=== PATIENT | female | born 1935 | race Caucasian/White ===

== ENCOUNTER 2017-11-28 14:10 | Outpatient (CLI) | payer MEDICARE, OTHER | END 2017-11-28 14:11 | disposition home or self-care (01) | LOC: BICMAMMO 14:10 | PROVIDERS: ATTEND Internal Medicine | DX: Z12.31 Encounter for screening mammogram for malignant neoplasm of breast (principal); Z13.820 Encounter for screening for osteoporosis; M85.859 Other specified disorders of bone density and structure, unspecified thigh | CPT/HCPCS: 77063; 77067; 77080 ==

== ENCOUNTER 2018-02-28 15:07 | Emergency (ER) | payer MEDICARE, OTHER ==
--- NOTE | 2018-02-28 16:03 | CT ---
CT HEAD NONCONTRAST DATE: 02/28/18 HISTORY: Headache. COMPARISON: 03/28/13. FINDINGS: There is no evidence of acute intracranial hemorrhage or infarct. Cortical atrophy and chronic ischem ic small vessel disease are again demonstrated. There is no mass effect or shift of midline structure s. Visualized paranasal sinuses remain well aerated. IMPRESSION: Chronic-type findings are stable. No acute intracranial abnormalities are demonstrated on noncontrast CT head. POS: [facility]
[2018-02-28 16:43] LABS: #Basophils 0.1 thou/uL (0.0-0.2); #Eosinphils 0.3 thou/uL (0.0-0.7); #Lymphocytes 2.1 thou/uL (1.20-3.40); #Monocytes 0.7 thou/uL (0.11-0.59); %Basophils 1.2 % (0.0-1.0); %Eosinophils 4.1 % (0.0-10.0); %Lymphocytes 29.8 % (21.0-51.0); %Monocytes 9.1 % (0.0-10.0); %Neutrophils 55.8 % (42.0-75.0); Hemoglobin 13.8 g/dL (12.0-16.0); Mean Corpuscular HGB CONC 32.8 g/dL (32.0-36.0); Mean Corpuscular Hemoglobin 28.8 pg (27.0-31.0); Mean Corpuscular Volume 87.8 fL (78.0-98.0); Mean Platelet Volume 8.6 fL (7.4-10.4); Platelet Count 208 thou/uL (130-400); RBC Distribution Width 12.7 % (11.5-14.5); Red Blood Cell (RBC) Count 4.81 mill/uL (4.20-5.40); White Blood Cell (WBC) Count 7.2 thou/uL (4.8-10.8)
[2018-02-28 17:16] LABS: ALT (SGPT) 15 U/L (8-55); AST (SGOT) 27 U/L (5-34); Albumin 4.4 g/dL (3.4-4.8); Alkaline Phosphatase 80 U/L (40-150); Anion Gap 14 mmol/L (10-20); BUN (Urea Nitrogen) 12 mg/dL (9.8-20.1); Bilirubin, Total 1.1 mg/dL (0.2-1.2); Calc. Creatinine Clearance 0 mL/min (70-130); Calcium 9.8 mg/dL (7.8-10.44); Carbon Dioxide 25 mmol/L (23-31); Chloride 105 mmol/L (98-107); Estimated GFR-MDRD 72; Glucose 91 mg/dL (83-110); Potassium 3.8 mmol/L (3.5-5.1); Protein, Total 7.4 g/dL (6.0-8.3); Sodium 140 mmol/L (136-145)
== END 2018-02-28 18:50 | disposition home or self-care (01) ==
LOC: ERS 15:07
DX: R51 Headache (principal); I10 Essential (primary) hypertension; E11.9 Type 2 diabetes mellitus without complications; E03.9 Hypothyroidism, unspecified; K21.9 Gastro-esophageal reflux disease without esophagitis; E78.5 Hyperlipidemia, unspecified; G43.909 Migraine, unspecified, not intractable, without status migrainosus; F32.9 Major depressive disorder, single episode, unspecified; Z79.899 Other long term (current) drug therapy; Z79.82 Long term (current) use of aspirin; Z79.84 Long term (current) use of oral hypoglycemic drugs
CPT/HCPCS: 36415; 70450; 80053; 85025

== ENCOUNTER 2019-03-18 13:35 | Outpatient (CLI) | payer MEDICARE, OTHER ==
--- NOTE | 2019-03-18 14:09 | MMO ---
Bilateral MAMMO Bilat Screen [facility]. CLINICAL HISTORY: Patient is 84 years old and is seen for screening. The patient has no family history of breast cancer. The patient has no personal history of cancer. VIEWS: The views performed were: bilateral craniocaudal with tomosynthesis and bilateral mediolateral oblique with tomosynthesis. FILMS COMPARED: The present examination has been compared to prior imaging studies performed at [facility] on 09/11/2012, 12/16/2013, 03/09/2015 and 11/28/2017. This study has been interpreted with the assistance of computer-aided detection. MAMMOGRAM FINDINGS: The breasts are almost entirely fat. There are stable benign appearing calcifications seen in both breasts. There are no suspicious masses, suspicious calcifications, or new areas of architectural distortion. IMPRESSION: THERE IS NO MAMMOGRAPHIC EVIDENCE OF MALIGNANCY. A ROUTINE FOLLOW-UP MAMMOGRAM IN 1 YEAR IS RECOMMENDED. THE RESULTS OF THIS EXAM WERE SENT TO THE PATIENT. ACR BI-RADS Category 2 - Benign finding MAMMOGRAPHY NOTE: 1. A negative mammogram report should not delay a biopsy if a dominant of clinically suspicious mass is present. 2. Approximately 10% to 15% of breast cancers are not detected by mammography. 3. Adenosis and dense breasts may obscure an underlying neoplasm. Reported by: ZEESHAN ARGUELLO MD Electonically Signed: [id number]
== END 2019-03-18 13:36 | disposition home or self-care (01) ==
LOC: BICMAMMO 13:35
PROVIDERS: ATTEND Internal Medicine
DX: Z12.31 Encounter for screening mammogram for malignant neoplasm of breast (principal)
CPT/HCPCS: 77063; 77067

== ENCOUNTER 2020-02-23 03:47 | Emergency (ER) | payer MEDICARE, OTHER ==
[2020-02-23] MEDS ORDERED: Acetaminophen 500 MG TAB ONE (04:15)
[2020-02-23 04:26] LABS: #Basophils 0.1 thou/uL (0.0-0.2); #Eosinphils 0.2 thou/uL (0.0-0.7); #Lymphocytes 1.6 thou/uL (1.20-3.40); #Monocytes 0.6 thou/uL (0.11-0.59); %Basophils 0.7 % (0.0-1.0); %Eosinophils 1.6 % (0.0-10.0); %Lymphocytes 15.1 % (21.0-51.0); %Monocytes 5.7 % (0.0-10.0); %Neutrophils 76.9 % (42.0-75.0); Hemoglobin 13.9 g/dL (12.0-16.0); Mean Corpuscular HGB CONC 32.5 g/dL (32.0-36.0); Mean Corpuscular Hemoglobin 29.4 pg (27.0-31.0); Mean Corpuscular Volume 90.6 fL (78.0-98.0); Mean Platelet Volume 8.6 fL (7.4-10.4); Platelet Count 172 thou/uL (130-400); RBC Distribution Width 12.1 % (11.5-14.5); Red Blood Cell (RBC) Count 4.72 mill/uL (4.20-5.40); White Blood Cell (WBC) Count 10.4 thou/uL (4.8-10.8)
[2020-02-23] MEDS ORDERED: Fentanyl 100 MCG/2 ML VIAL ONE (04:44)
[2020-02-23 04:47] LABS: ALT (SGPT) 15 U/L (8-55); AST (SGOT) 19 U/L (5-34); Alkaline Phosphatase 65 U/L (40-110); Anion Gap 18 mmol/L (10-20); BUN (Urea Nitrogen) 16 mg/dL (9.8-20.1); Bilirubin, Total 0.5 mg/dL (0.2-1.2); Calc. Creatinine Clearance 0 mL/min (70-130); Calcium 8.5 mg/dL (7.8-10.44); Carbon Dioxide 24 mmol/L (23-31); Chloride 106 mmol/L (98-107); Globulin 2.6 g/dL (2.4-3.5); Glucose 149 mg/dL (83-110); Protein, Total 6.6 g/dL (6.0-8.3); Sodium 144 mmol/L (136-145)
[2020-02-23 06:10] LABS: Bacteria/HPF 4+ HPF (None Seen); Bilirubin Negative (Negative); Blood, Urine 1+ (Negative); Clarity Turbid (Clear); Glucose, Urine (Dipstick) Normal (Negative); Ketone, Urine Negative (Negative); Leukocyte 250 Leu/uL (Negative); Nitrite 2+ (Negative); Protein, Urine (Dipstick) 20 mg/dL (Neg-Trace); RBC/HPF 0-3 HPF (0-3); Specific Gravity, Urine 1.011 (1.002-1.036); Squamous Epithelial 0-3 HPF (0-3); Urobilinogen Normal mg/dL (Less than 2)
--- NOTE | 2020-02-23 07:40 | CT ---
PRELIMINARY REPORT/[facility]/EMERGENCY AFTER HOURS PROCEDURE EXAM: CT Head and Cervical Spine Without IV contrast. CLINICAL HISTORY: FALL TECHNIQUE: Axial computed tomography images were acquired of the head and the cervical spine without intravenous contrast. Sagittal and coronal reformatted images were obtained of the cervical spine. COMPARISON: None provided. FINDINGS: BRAIN: There is cerebral atrophy. There is no intracranial hemorrhage. Periventricular hypodensities are pre sent secondary to small vessel ischemic disease. VENTRICLES No hydrocephalus. ORBITS The orbits are unremarkable. SINUSES AND MASTOIDS The paranasal sinuses and mastoid air cells are clear. SOFT TISSUES No significant facial or scalp soft tissue swelling evident. No radiopaque foreign body is seen. BONES No acute osseous pathology evident. No acute fracture is evident on images of the head or cervical spine. DISKS/DEGENERATIVE CHANGES Cystic degenerative changes of the dens is present. Facet hypertrophy is present. MISCELLANEOUS Carotid arteries are heavily calcified. IMPRESSION: No acute intracranial abnormality. Degenerative changes cervical spine. ELECTRONICALLY SIGNED BY: Alexa Akhtar MD Feb 23, 2020 4:57:16 AM EDUCATIONAL SPECIALIST This report is intended for review by the ordering physician only, in accordance of law. If you recei ve this report in error, please call [facility] at [phone]. FINAL REPORT Final interpretation Head CT without contrast: 02/23/2020 COMPARISON: None. HISTORY: Fall, trauma, pain. FINDINGS: I agree with the preliminary report. The visualized paranasal sinuses and mastoid air cells are well-aerated. No displaced calvarial fract ure is noted. There is no intracranial hemorrhage, midline shift, or mass effect. There is periventricular hypodensity suggesting small vessel disease. IMPRESSION: No acute findings. Transcribed Date/Time: 02/23/2020 8:06 AM
--- NOTE | 2020-02-23 07:43 | CT ---
PRELIMINARY REPORT/[facility]/EMERGENCY AFTER HOURS PROCEDURE EXAM: CT Head and Cervical Spine Without IV contrast. CLINICAL HISTORY: FALL TECHNIQUE: Axial computed tomography images were acquired of the head and the cervical spine without intravenous contrast. Sagittal and coronal reformatted images were obtained of the cervical spine. COMPARISON: None provided. FINDINGS: BRAIN: There is cerebral atrophy. There is no intracranial hemorrhage. Periventricular hypodensities are pre sent secondary to small vessel ischemic disease. VENTRICLES No hydrocephalus. ORBITS The orbits are unremarkable. SINUSES AND MASTOIDS The paranasal sinuses and mastoid air cells are clear. SOFT TISSUES No significant facial or scalp soft tissue swelling evident. No radiopaque foreign body is seen. BONES No acute osseous pathology evident. No acute fracture is evident on images of the head or cervical spine. DISKS/DEGENERATIVE CHANGES Cystic degenerative changes of the dens is present. Facet hypertrophy is present. MISCELLANEOUS Carotid arteries are heavily calcified. IMPRESSION: No acute intracranial abnormality. Degenerative changes cervical spine. ELECTRONICALLY SIGNED BY: Alexa Akhtar MD Feb 23, 2020 4:57:16 AM FLASHER ADJUSTER This report is intended for review by the ordering physician only, in accordance of law. If you recei ve this report in error, please call [facility] at [phone]. FINAL REPORT Final interpretation CT cervical spine: 02/23/2020 COMPARISON: 03/28/2019 HISTORY: Injury, trauma, pain. FINDINGS: I agree with the preliminary report. There is prominent atherosclerotic calcification in region of distal CCA and proximal ICA bilaterally , right greater than left. Imaged lung apices unremarkable. The C1 ring is intact. There is prominent degenerative change at the left aspect of the C1-2 articula tion. There is prominent multilevel upper and mid cervical spine facet hypertrophic change on the left. There is no widening of the atlantoaxial interspace. The craniocervical junction and the cervic othoracic junction demonstrate no acute findings. There is no anterolisthesis or retrolisthesis seen and there is no prevertebral soft tissue swelling. No acute fracture or dislocation is seen within the cervical spine. IMPRESSION: 1. Multilevel degenerative change within the cervical spine, especially on the left within the upper and mid cervical region. No fracture or dislocation. 2. Prominent carotid atherosclerotic calcification, right greater than left. Transcribed Date/Time: 02/23/2020 8:09 AM
--- NOTE | 2020-02-23 07:54 | RAD ---
2 views left humerus: 02/23/2020 COMPARISON: None HISTORY: Injury, trauma, pain FINDINGS: A comminuted fracture is noted involving the distal left humerus for which dedicated left e lbow series is advised. There are degenerative changes at the left acromioclavicular joint. IMPRESSION: Comminuted distal left humerus fracture. Dedicated left elbow series advised.
--- NOTE | 2020-02-23 07:55 | RAD ---
4 views left elbow: 02/23/2020 COMPARISON: None HISTORY: Injury, trauma, pain FINDINGS: There is a comminuted displaced intra-articular fracture of the distal left humerus. Distal fracture fragment is posteriorly displaced by approximately 8 mm. There is an elbow joint effusion. No radha dislocation. IMPRESSION: Comminuted impacted displaced intra-articular fracture of the distal left humerus. Orthop edic consultation advised.
--- NOTE | 2020-02-23 07:59 | RAD ---
Portable frontal chest radiograph: 02/23/2020 COMPARISON: 02/11/2019 HISTORY: Fall, trauma, pain FINDINGS: Supine imaging is provided, limiting assessment for pneumothorax and pleural fluid. Stable interstitial prominence and vascular calcification of the aortic arch. No focal consolidation or alveolar edema. IMPRESSION: No acute findings.
== END 2020-02-23 05:33 | disposition home or self-care (01) ==
LOC: ERS 03:47
DX: S42.412A Displaced simple supracondylar fracture without intercondylar fracture of left humerus, initial encounter for closed fracture (principal); W19.XXXA Unspecified fall, initial encounter; Y92.89 Other specified places as the place of occurrence of the external cause
CPT/HCPCS: 24530; 36415; 51701; 70450; 71045; 72125; 80053; 81003; 81015; 84484; 85025; 87077; 87086; 87186; 93005; 96372; J3010

== ENCOUNTER 2020-03-04 08:43 | Outpatient (CLI) | payer MEDICARE, OTHER ==
[2020-03-04 15:06] LABS: #Basophils 0.1 10x3/uL (0.0-0.2); #Eosinphils 0.3 10x3/uL (0.0-0.5); #Monocytes 0.8 10x3/uL (0.0-1.1); #Neutrophils 6.4 10x3/uL (1.5-8.4); %Basophils 1.3 % (0.0-2.0); %Eosinophils 2.8 % (0.0-6.0); %Lymphocytes 17.7 % (18.0-47.0); %Monocytes 8.8 % (0.0-10.0); %Neutrophils 69.2 % (40.0-75.0); Hemoglobin 13.9 g/dL (12.0-16.0); Mean Corpuscular HGB CONC 31.4 G/DL (32.0-36.0); Mean Corpuscular Hemoglobin 28.6 PG (27.0-33.0); Mean Corpuscular Volume 90.9 fl (80.0-100.0); Mean Platelet Volume 10.3 fl (7.4-10.4); Platelet Count 289 10x3/uL (130-400); Red Blood Cell (RBC) Count 4.86 10x6/uL (3.90-5.20); White Blood Cell (WBC) Count 9.2 10x3/uL (4.5-11.0)
[2020-03-04 15:14] LABS: Anion Gap 15 mmol/L (10-20); BUN (Urea Nitrogen) 15 mg/dL (9.8-20.1); Calc. Creatinine Clearance 0 mL/min (70-130); Calcium 9.1 mg/dL (7.8-10.44); Carbon Dioxide 23 mmol/L (23-31); Chloride 101 mmol/L (98-107); Glucose 112 mg/dL (83-110); Sodium 135 mmol/L (136-145)
[2020-03-04 15:21] LABS: Prothrombin Time 10.9 sec (9.5-12.1)
[2020-03-05 02:11] LABS: SARS-CoV-2 MS2 Positive; SARS-CoV-2 N Gene Negative; SARS-CoV-2 S Gene Negative; SARS-CoV-2 by NAA Not Detected (NotDetected); SARS-CoV-2 orf1ab Negative
== END 2020-03-04 08:44 | disposition home or self-care (01) ==
LOC: LABBT 08:43
PROVIDERS: ATTEND Orthopaedic Surgery
DX: Z01.818 Encounter for other preprocedural examination (principal); S42.402A Unspecified fracture of lower end of left humerus, initial encounter for closed fracture; Z20.828 Contact with and (suspected) exposure to other viral communicable diseases
CPT/HCPCS: 80048; 85025; 85610; 93005; U0003; 87635; 93010

== ENCOUNTER 2020-03-04 14:15 | Inpatient (IN) | payer MEDICARE, OTHER ==
[2020-03-03 13:04] VITALS: BMI 30.5
[2020-03-09] MEDS ORDERED: Tranexamic Acid 1,000 MG/10 ML VIAL ONE (06:29)
[2020-03-09] MEDS ORDERED: Vancomycin 1.5 GRAM/300 ML BAG ONE (06:30)
[2020-03-09] MEDS ORDERED: Sodium Chloride 0.9% 100 ML ONE (06:30)
[2020-03-09] MEDS ORDERED: Fentanyl 100 MCG/2 ML VIAL ONE ×3 (10:28→14:02)
[2020-03-09] MEDS ORDERED: Methocarbamol 500 MG TAB PO PRN (10:39)
[2020-03-09] MEDS ORDERED: Methocarbamol 1 GM/10 ML VIAL SLOW IVP PRN (10:39)
[2020-03-09] MEDS ORDERED: Ondansetron ODT 4 MG TAB PO PRN (10:39)
[2020-03-09] MEDS ORDERED: HYDROcodone/Acetaminophen 7.5/325 mg Tablet PO PRN (10:39)
[2020-03-09] MEDS ORDERED: traMADol HCl 50 MG TAB PO PRN ×2 (10:39)
[2020-03-09] MEDS ORDERED: Bisacodyl 10 MG SUPP PR PRN (10:39)
[2020-03-09] MEDS ORDERED: Acetaminophen 325 MG TAB PO PRN (10:39)
[2020-03-09] MEDS ORDERED: Ondansetron PF 4 MG/2 ML Vial IVP PRN (10:39)
[2020-03-09] MEDS ORDERED: diphenhydrAMINE 50 MG CAP PO PRN (10:39)
[2020-03-09] MEDS ORDERED: Milk Of Magnesia 30 ML UDCUP PO PRN (10:39)
--- NOTE | 2020-03-09 10:40 | RAD ---
LEFT ELBOW: Three fluoroscopic images are presented from the OR. INDICATION: Left elbow joint replacement. FINDINGS/IMPRESSION: Images obtained in OR during prosthesis placement. These images show placement of a left elbow prosth esis with components in adequate position. POS: [facility]
[2020-03-09] MEDS ORDERED: ePHEDrine 50 MG/ML VIAL ONE (10:59)
[2020-03-09] MEDS ORDERED: Rocuronium Bromide 10 MG/ML (10ML VIAL) ONE (10:59)
[2020-03-09] MEDS ORDERED: PROPOFOL 200 MG/20 ML VIAL ONE (10:59)
[2020-03-09] MEDS ORDERED: Dexamethasone 20 MG/5 ML VIAL ONE (10:59)
[2020-03-09] MEDS ORDERED: Lidocaine 1% PF 5 ML VIAL ONE (10:59)
[2020-03-09] MEDS ORDERED: Ondansetron PF 4 MG/2 ML Vial ONE (10:59)
--- NOTE | 2020-03-09 12:43 | OP ---
DATE OF PROCEDURE: 03/09/2020 PREOPERATIVE DIAGNOSIS: Left distal humerus fracture. POSTOPERATIVE DIAGNOSIS: Left distal radius intra-articular fracture. PROCEDURE PERFORMED: 1. Left total elbow arthroplasty. 2. Ulnar nerve transposition. PHARMACY SCHEDULER: Tomasz Deutsch PA-C ANESTHESIA: The patient received a general intubation and she received a scalene block postprocedure. ESTIMATED BLOOD LOSS: 150 mL. TOURNIQUET TIME: 128 minutes at 750 mmHg. ANTIBIOTICS: Ancef 2 g, vancomycin 1.5. IMPLANTS: Latitude total elbow, humerus, large left 83 mm stem, large left centered spool ulnar, large left 80 mm stem, large ulnar cap. COMPLICATIONS: None. HISTORY OF PRESENT ILLNESS: Ms. Sweet is an 85-year-old female with ground level fall sustaining a left humerus fracture intra-articular split. I do not feel would be conducive for ORIF. She had good overall function with total elbow arthroplasty. I discussed with her daughter the risks and benefits of this procedure include pain, scar, bleeding, infection, damage to vital structures, decreased range of motion and strength, need for further surgeries, loss of life or limb. The patient and family understood risks and benefits of the procedure and elected to proceed. DESCRIPTION OF PROCEDURE: After time-out was performed, the left upper extremity was prepped and draped in sterile fashion. We took the tourniquet up and left for 128 minutes and midline incision down the skin. We felt skin flaps medially and laterally. We dissected out the ulnar nerve, releasing it and placing a vessel loop around to control it. We then did our median and ulnar borders. We exposed the epicondyles coming down the anterior and posterior, actually humerus. We dissected out the triceps. We then distally exposed the lateral epicondyle, exposed both medially and laterally exposing the capitellum and the epicondyle and the remnant of the patient's trochlea. We used a Sizer spool which appeared to be large. Based on this, we exposed our humerus. We started rongeuring, creating and start opening our flexible reamers going up to our broaches to a good sized to fit. We used the proximal end of the olecranon fossa as our basis for our humeral stem and we attempted to get about 10 to 15 degrees internal rotation of the humerus based of this posterior access humerus. Being happy with this, we placed our cutting jig to remove just a little bit of bone to help with our distal and ensured we had appropriate position. Being happy with that, we then moved back to the patient's ulna. We had exposed the ulna medially and laterally. We used our cutting jig, our spool which we pinned in place, felt like the large was the correct size. We then used our barrel filler head and went over the barrel filler head once and completed the second pass. Removing this portion, we then rongeur down the patient's olecranon to help with passage of our reamers. We started with a gita to create a hole followed by a flexible reamer ball-tip down. We passed flexor reamer up to about 10. We broached based on the flat surface of the ulna. I broached our first broach working up to the large broach. We then trialed our stem, reduced our ulna, looked in AP and lateral radiographs fluoroscopically, felt like she had good overall alignment of the implants intra-articularly, alignment with the ulna appropriately as well as the humerus. Being happy with the position of the implants, we then removed all our implants. We washed and cleaned all the surfaces. We created a wedge from the capitellum of bone to place anteriorly under our flange. We then mixed our cement. We paced our cement and passed our ulnar stem impacting into place. We removed the excess cement and ensure that it was seated. We moved back to the patient's humerus. We placed our humerus and removed the excess cement and placed our wedge, allowed it to dry. Once dried, we were able to reduce our ulna. We used our ulnar cap and screwed it into place to tamp down the small flange on top ensured with good range of motion, flexion, extension. I liked this overall alignment and axis. We then took radiographs showing this. We then placed through the center-center axis and passed remnant soft tissue through the epicondyle to sew #2 FiberWire on both sides of the condyles back in the near anatomic position. We then closed the interval. We transposed the nerve anteriorly and fat pad in place closed medially and laterally with #1 and 0 Vicryl. We washed and closed subcu with 2-0, and skin with yogesh. The patient was placed in a splint at 90 degrees. The patient will be seen on Sunday in my clinic at which time, removed her splint, given removable splint so she can start range of motion of her elbow. [place] stand for likely 2 to 3 weeks. Job ID: [id number]
[2020-03-09] MEDS ORDERED: Acetaminophen 500 MG TAB PO PRN (15:06)
[2020-03-09] MEDS ORDERED: Cyanocobalamin 1000 MCG/ML VIAL IM SCH (15:15)
[2020-03-09] MEDS: HYDROcodone/Acetaminophen 7.5/325 mg Tablet PO PRN ×2 (15:25→20:14)
[2020-03-09] MEDS: CEFAZOLIN 2 GM in Premix Bag 1 BAG IVPB SCH ×2 (15:25→23:08)
[2020-03-09] MEDS: Dextrose 5 %-0.45 % NaCl 1,000 ML IV SCH (15:29)
[2020-03-09] MEDS: metFORMIN 500 MG TAB PO SCH (16:42)
[2020-03-09] MEDS ORDERED: Vancomycin 1.5 GRAM/300 ML BAG 1.5 GM in Premix Bag 1 BAG IVPB SCH (19:00)
[2020-03-09] MEDS: Mometasone 100 MCG/PUFF (1 INHALER) INH SCH (19:05)
[2020-03-09] MEDS: Famotidine 20 MG TAB PO SCH (20:13)
[2020-03-09] MEDS: Gabapentin 300 MG CAP PO SCH (20:13)
[2020-03-09] MEDS: Nitrofurantoin Macrocrystal 50 MG CAP PO SCH (20:14)
[2020-03-10] MEDS: Dextrose 5 %-0.45 % NaCl 1,000 ML IV SCH (03:18)
[2020-03-10] MEDS: HYDROcodone/Acetaminophen 7.5/325 mg Tablet PO PRN ×2 (04:03→08:41)
[2020-03-10] MEDS ORDERED: Levothyroxine 150 MCG TAB PO SCH (06:00)
[2020-03-10] MEDS ORDERED: Dextrose 50% Abboject 50 ML SYRINGE SLOW IVP PRN (07:18)
[2020-03-10] MEDS ORDERED: Insulin Regular 300 UNITS/3 ML VIAL SC PRN (07:18)
[2020-03-10] MEDS ORDERED: Dextrose 5% in Water 1,000 ML IV PRN (07:18)
[2020-03-10] MEDS: Mometasone 100 MCG/PUFF (1 INHALER) INH SCH (08:00)
[2020-03-10] MEDS ORDERED: Multivit, Therapeutic 1 TAB PO SCH (09:00)
[2020-03-10] MEDS ORDERED: Loratadine 10 MG TAB PO SCH (09:00)
[2020-03-10] MEDS ORDERED: Aspirin Chewable 81 MG TAB PO SCH (09:00)
[2020-03-10] MEDS ORDERED: Escitalopram Oxalate 20 mg Tablet PO SCH (09:00)
[2020-03-10] MEDS ORDERED: Hydrochlorothiazide 25 MG TAB PO SCH (09:00)
[2020-03-10] MEDS ORDERED: Losartan 25 MG TAB PO SCH (09:00)
[2020-03-10] MEDS ORDERED: Ropivacaine 0.5% HCl/PF (150 MG/30 ML VIAL) ONE (09:16)
[2020-03-10] MEDS ORDERED: Ropivacaine 0.2% HCl/PF (40 MG/20 ML VIAL) ONE (09:16)
[2020-03-10] MEDS: Famotidine 20 MG TAB PO SCH (09:31)
[2020-03-10] MEDS: metFORMIN 500 MG TAB PO SCH ×2 (09:31→17:00)
[2020-03-10] MEDS: Gabapentin 300 MG CAP PO SCH ×2 (09:31→15:07)
[2020-03-10] MEDS: Nitrofurantoin Macrocrystal 50 MG CAP PO SCH (09:32)
[2020-03-10 17:12] VITALS: BP 97/59; TEMP 98.4
== END 2020-03-10 18:00 | disposition home or self-care (01) | DRG 483 ==
LOC: SURG A 03-09 05:36
PROVIDERS: ADMIT Orthopaedic Surgery; ATTEND Orthopaedic Surgery
PROC: 0RRM0JZ Replacement of Left Elbow Joint with Synthetic Substitute, Open Approach (ICD-10-PCS; principal; 2020-03-09)
DX: S42.402A Unspecified fracture of lower end of left humerus, initial encounter for closed fracture (principal); Z20.822 Contact with and (suspected) exposure to COVID-19; W18.30XA Fall on same level, unspecified, initial encounter; I10 Essential (primary) hypertension; E78.5 Hyperlipidemia, unspecified; D64.9 Anemia, unspecified; J30.2 Other seasonal allergic rhinitis; E11.51 Type 2 diabetes mellitus with diabetic peripheral angiopathy without gangrene; E03.9 Hypothyroidism, unspecified; K59.09 Other constipation; F41.9 Anxiety disorder, unspecified; Z79.84 Long term (current) use of oral hypoglycemic drugs; Z79.890 Hormone replacement therapy; Z90.710 Acquired absence of both cervix and uterus; Z79.899 Other long term (current) drug therapy; Z79.82 Long term (current) use of aspirin
CPT/HCPCS: 36416; 76000; C1713; J0690; J1100; J2405; J2704; J3010; J3370; J3490

== ENCOUNTER 2021-10-19 05:46 | Emergency (ER) | payer MEDICARE, OTHER ==
[2021-10-19] MEDS ORDERED: Oxymetazoline HCl 0.05% (30 ML BOT) ONE (05:51)
[2021-10-19] MEDS ORDERED: Ondansetron ODT 4 MG TAB ONE (08:11)
== END 2021-10-19 09:20 | disposition home or self-care (01) ==
LOC: ERS 05:46
DX: R04.0 Epistaxis (principal); S02.2XXD Fracture of nasal bones, subsequent encounter for fracture with routine healing; I10 Essential (primary) hypertension; E11.40 Type 2 diabetes mellitus with diabetic neuropathy, unspecified; Z79.82 Long term (current) use of aspirin; Z79.84 Long term (current) use of oral hypoglycemic drugs; Z79.899 Other long term (current) drug therapy
CPT/HCPCS: 31238 ×2; 70450; 70486; 76377; 99284; G0463; 99214; Q0162

== ENCOUNTER 2022-05-26 11:02 | Inpatient (IN) | payer MEDICARE, OTHER ==
[2022-05-26 11:54] LABS: #Basophils 0.1 thou/uL (0.0-0.2); #Eosinphils 0.1 thou/uL (0.0-0.7); #Lymphocytes 1.5 thou/uL (1.20-3.40); #Monocytes 1.2 thou/uL (0.11-0.59); #Neutrophils 8.4 thou/uL (1.40-6.50); %Basophils 0.5 % (0.0-1.0); %Eosinophils 0.5 % (0.0-10.0); %Lymphocytes 13.6 % (21.0-51.0); %Monocytes 10.8 % (0.0-10.0); %Neutrophils 74.7 % (42.0-75.0); Hemoglobin 12.2 g/dL (12.0-16.0); Mean Corpuscular HGB CONC 32.5 g/dL (32.0-36.0); Mean Corpuscular Hemoglobin 25.9 pg (27.0-31.0); Mean Corpuscular Volume 79.6 fl (78.0-98.0); Mean Platelet Volume 9.4 fL (7.4-10.4); Platelet Count 179 10x3/uL (130-400); RBC Distribution Width 14.5 % (11.5-14.5); Red Blood Cell (RBC) Count 4.73 mill/uL (4.20-5.40); White Blood Cell (WBC) Count 11.2 10x3/uL (4.8-10.8)
[2022-05-26 12:21] LABS: ALT (SGPT) 29 U/L (8-55); AST (SGOT) 86 U/L (5-34); Albumin 4.2 g/dL (3.4-4.8); Alkaline Phosphatase 67 U/L (40-110); Anion Gap 15 mmol/L (10-20); BUN (Urea Nitrogen) 14 mg/dL (9.8-20.1); Bilirubin, Total 1.3 mg/dL (0.2-1.2); CK (CPK) 3874 U/L (29-168); Calc. Creatinine Clearance 0 mL/min (70-130); Calcium 9.9 mg/dL (7.8-10.44); Carbon Dioxide 22 mmol/L (23-31); Chloride 104 mmol/L (98-107); Estimated GFR 66; Globulin 3.1 g/dL (2.4-3.5); Glucose 126 mg/dL (83-110); Potassium 3.9 mmol/L (3.5-5.1); Protein, Total 7.3 g/dL (5.8-8.1); Sodium 137 mmol/L (136-145)
[2022-05-26 13:11] LABS: Acetaminophen Less than 10.0 mcg/mL (10.0-30.0); Alcohol Less than 10 mg/dL (Less than 10); Salicylate Less than 8.0 mg/dL (15.0-30.0)
[2022-05-26] MEDS ORDERED: Ondansetron PF 4 MG/2 ML Vial IVP PRN (14:04)
[2022-05-26] MEDS ORDERED: Ondansetron ODT 4 MG TAB PO PRN (14:04)
[2022-05-26] MEDS ORDERED: HumaLOG 300 UNITS/3 ML VIAL SC PRN ×2 (15:54)
[2022-05-26] MEDS ORDERED: Dextrose 5% in Water 1,000 ML IV PRN (15:54)
[2022-05-26] MEDS ORDERED: Dextrose 50% Abboject 50 ML SYRINGE SLOW IVP PRN (15:54)
[2022-05-26 16:00] VITALS: BMI 28.5
[2022-05-26] MEDS: Sodium Chloride 0.9% 1,000 ML IV SCH (17:28)
[2022-05-26 17:34] LABS: Troponin I Less than 0.010 ng/mL (< 0.028)
[2022-05-26 17:43] LABS: Hemoglobin A1c 6.4 % (4.0-6.0)
[2022-05-26 18:41] LABS: Troponin I 0.015 ng/mL (< 0.028)
[2022-05-27] MEDS: Acetaminophen 325 MG TAB PO PRN ×3 (02:57→14:49)
[2022-05-27] MEDS: Sodium Chloride 0.9% 1,000 ML IV SCH ×2 (02:58→17:58)
[2022-05-27 05:02] LABS: #Basophils 0.1 thou/uL (0.0-0.2); #Eosinphils 0.1 thou/uL (0.0-0.7); #Lymphocytes 2.3 thou/uL (1.20-3.40); #Neutrophils 5.6 thou/uL (1.40-6.50); %Basophils 0.8 % (0.0-1.0); %Eosinophils 1.4 % (0.0-10.0); %Lymphocytes 25.6 % (21.0-51.0); %Monocytes 10.7 % (0.0-10.0); %Neutrophils 61.5 % (42.0-75.0); Hemoglobin 10.5 g/dL (12.0-16.0); Mean Corpuscular Hemoglobin 26.1 pg (27.0-31.0); Mean Corpuscular Volume 79.2 fl (78.0-98.0); Mean Platelet Volume 9.5 fL (7.4-10.4); Platelet Count 147 10x3/uL (130-400); RBC Distribution Width 14.5 % (11.5-14.5); Red Blood Cell (RBC) Count 4.03 mill/uL (4.20-5.40); White Blood Cell (WBC) Count 9.1 10x3/uL (4.8-10.8)
[2022-05-27 05:20] LABS: Anion Gap 12 mmol/L (10-20); BUN (Urea Nitrogen) 15 mg/dL (9.8-20.1); Calc. Creatinine Clearance 71 mL/min (70-130); Calcium 8.7 mg/dL (7.8-10.44); Carbon Dioxide 21 mmol/L (23-31); Chloride 106 mmol/L (98-107); Estimated GFR 77; Glucose 105 mg/dL (83-110); Potassium 3.3 mmol/L (3.5-5.1); Sodium 136 mmol/L (136-145)
[2022-05-27] MEDS ORDERED: Potassium Chloride 20 MEQ TAB PO SCH (08:30)
[2022-05-27] MEDS ORDERED: Non-Formulary Item 1 EACH (Levothyroxine Sodium [Synthroid] 200 MCG Tablet) PO SCH (09:00)
[2022-05-27] MEDS: Fluticasone Propionate Nasal Spray 16 gm Bottle NASAL SCH (20:24)
[2022-05-28 05:07] LABS: Hemoglobin 11.3 g/dL (12.0-16.0); Mean Corpuscular HGB CONC 33.1 g/dL (32.0-36.0); Mean Corpuscular Hemoglobin 26.4 pg (27.0-31.0); Mean Corpuscular Volume 79.9 fl (78.0-98.0); Mean Platelet Volume 9.5 fL (7.4-10.4); Platelet Count 164 10x3/uL (130-400); RBC Distribution Width 14.5 % (11.5-14.5); Red Blood Cell (RBC) Count 4.29 mill/uL (4.20-5.40); White Blood Cell (WBC) Count 7.8 10x3/uL (4.8-10.8)
[2022-05-28] MEDS: Sodium Chloride 0.9% 1,000 ML IV SCH (05:18)
[2022-05-28] MEDS: Levothyroxine Sodium 112 MCG TAB PO SCH (05:19)
[2022-05-28] MEDS: Levothyroxine Sodium 25 MCG TAB PO SCH (05:19)
[2022-05-28] MEDS: Acetaminophen 325 MG TAB PO PRN ×2 (05:19→19:39)
[2022-05-28 05:26] LABS: Anion Gap 13 mmol/L (10-20); BUN (Urea Nitrogen) 8 mg/dL (9.8-20.1); CK (CPK) 811 U/L (29-168); Calc. Creatinine Clearance 74 mL/min (70-130); Calcium 8.9 mg/dL (7.8-10.44); Carbon Dioxide 20 mmol/L (23-31); Chloride 110 mmol/L (98-107); Estimated GFR 81; Glucose 118 mg/dL (83-110); Potassium 3.5 mmol/L (3.5-5.1); Sodium 139 mmol/L (136-145)
[2022-05-28] MEDS: Amlodipine 5 MG TAB PO SCH (08:07)
[2022-05-28] MEDS: Gabapentin 300 MG CAP PO SCH (08:09)
[2022-05-28] MEDS: Furosemide 20 MG TAB PO SCH (08:10)
[2022-05-28] MEDS: Aspirin 81 mg Enteric Coated Tablet PO SCH (08:10)
[2022-05-28] MEDS: Fluticasone Propionate Nasal Spray 16 gm Bottle NASAL SCH ×2 (08:10→19:39)
[2022-05-28] MEDS: Loratadine 10 MG TAB PO SCH (08:15)
[2022-05-28] MEDS ORDERED: Polyvinyl Alcohol 1.4%/Povidone 0.6% Opth Drops EA EYE PRN (13:22)
[2022-05-28] MEDS ORDERED: Escitalopram Oxalate 20 mg Tablet PO SCH (13:30)
[2022-05-28 15:09] LABS: Bacteria/HPF 4+ HPF (None Seen); Bilirubin Negative (Negative); Blood, Urine 1+ (Negative); CAUTI Indications for Culture Dysuria,urgency,freq; Clarity Turbid (Clear); Glucose, Urine (Dipstick) Normal (Negative); Ketone, Urine Negative (Negative); Leukocyte 500 Leu/uL (Negative); Nitrite Negative (Negative); Protein, Urine (Dipstick) 50 mg/dL (Neg-Trace); RBC/HPF 21-50 HPF (0-3); Specific Gravity, Urine 1.008 (1.002-1.036); Squamous Epithelial 0-3 HPF (0-3); Urobilinogen Normal mg/dL (Less than 2); WBC/HPF Greater than 50 HPF (0-3)
[2022-05-28 15:10] LABS: Urine Culture Reflex Yes Yes
[2022-05-28] MEDS: cefTRIAXone\\ROCEPHIN 1 GM in Sodium Chloride 0.9% 100 ML IVPB SCH (17:43)
[2022-05-29] MEDS: Levothyroxine Sodium 25 MCG TAB PO SCH (05:45)
[2022-05-29] MEDS: Levothyroxine Sodium 112 MCG TAB PO SCH (05:45)
[2022-05-29 06:09] LABS: Anion Gap 14 mmol/L (10-20); BUN (Urea Nitrogen) 9 mg/dL (9.8-20.1); CK (CPK) 345 U/L (29-168); Calc. Creatinine Clearance 68 mL/min (70-130); Calcium 9.6 mg/dL (7.8-10.44); Carbon Dioxide 22 mmol/L (23-31); Chloride 105 mmol/L (98-107); Estimated GFR 74; Glucose 121 mg/dL (83-110); Potassium 3.7 mmol/L (3.5-5.1); Sodium 137 mmol/L (136-145)
[2022-05-29] MEDS: Escitalopram Oxalate 20 mg Tablet PO SCH (09:13)
[2022-05-29] MEDS: Amlodipine 5 MG TAB PO SCH (09:13)
[2022-05-29] MEDS: Gabapentin 300 MG CAP PO SCH (09:13)
[2022-05-29] MEDS: Fluticasone Propionate Nasal Spray 16 gm Bottle NASAL SCH ×2 (09:14→19:36)
[2022-05-29] MEDS: Furosemide 20 MG TAB PO SCH (09:14)
[2022-05-29] MEDS: Aspirin 81 mg Enteric Coated Tablet PO SCH (09:14)
[2022-05-29] MEDS: cefTRIAXone\\ROCEPHIN 1 GM in Sodium Chloride 0.9% 100 ML IVPB SCH (16:55)
[2022-05-29] MEDS ORDERED: Melatonin 3 MG TAB PO PRN (22:29)
[2022-05-30] MEDS: Levothyroxine Sodium 25 MCG TAB PO SCH (06:19)
[2022-05-30] MEDS: Levothyroxine Sodium 112 MCG TAB PO SCH (06:19)
[2022-05-30 06:37] LABS: Anion Gap 11 mmol/L (10-20); BUN (Urea Nitrogen) 15 mg/dL (9.8-20.1); Calc. Creatinine Clearance 74 mL/min (70-130); Calcium 9.1 mg/dL (7.8-10.44); Carbon Dioxide 25 mmol/L (23-31); Chloride 104 mmol/L (98-107); Estimated GFR 81; Glucose 124 mg/dL (83-110); Potassium 3.7 mmol/L (3.5-5.1); Sodium 136 mmol/L (136-145)
[2022-05-30] MEDS: Aspirin 81 mg Enteric Coated Tablet PO SCH (08:49)
[2022-05-30] MEDS: Escitalopram Oxalate 20 mg Tablet PO SCH (08:50)
[2022-05-30] MEDS: Furosemide 20 MG TAB PO SCH (08:50)
[2022-05-30] MEDS: Gabapentin 300 MG CAP PO SCH (08:50)
[2022-05-30] MEDS: Amlodipine 5 MG TAB PO SCH (08:50)
[2022-05-30] MEDS: Loratadine 10 MG TAB PO SCH (08:50)
[2022-05-30] MEDS: Fluticasone Propionate Nasal Spray 16 gm Bottle NASAL SCH (08:51)
[2022-05-30] MEDS ORDERED: Meropenem 1 GM in Sodium Chloride 0.9% 100 ML IVPB SCH ×2 (10:00→18:00)
[2022-05-30] MEDS: Acetaminophen 325 MG TAB PO PRN (10:03)
[2022-05-30 12:48] VITALS: BP 118/58; TEMP 97.6
== END 2022-05-30 16:26 | DRG 564 ==
LOC: ERS 11:02 → 2NO 14:30 → T4-A 05-28 17:11
PROVIDERS: ADMIT Internal Medicine; ATTEND Hospitalist
DX: T79.6XXA Traumatic ischemia of muscle, initial encounter (principal); J96.01 Acute respiratory failure with hypoxia; I50.32 Chronic diastolic (congestive) heart failure; N39.0 Urinary tract infection, site not specified; Z16.24 Resistance to multiple antibiotics; E11.40 Type 2 diabetes mellitus with diabetic neuropathy, unspecified; Z96.622 Presence of left artificial elbow joint; E78.5 Hyperlipidemia, unspecified; E03.9 Hypothyroidism, unspecified; I11.0 Hypertensive heart disease with heart failure; B96.20 Unspecified Escherichia coli [E. coli] as the cause of diseases classified elsewhere; W18.30XA Fall on same level, unspecified, initial encounter; Z90.710 Acquired absence of both cervix and uterus; Z88.2 Allergy status to sulfonamides; Z88.5 Allergy status to narcotic agent; Z79.82 Long term (current) use of aspirin; Z79.84 Long term (current) use of oral hypoglycemic drugs; Z79.899 Other long term (current) drug therapy
CPT/HCPCS: 36415; 36416; 70450; 72170; 80048; 80053; 80307; 81001; 82550; 83036; 84443; 84484; 85025; 85027; 87077; 87086; 87186; 96360; J0696; J1815; J2185; J3490; J7050

== ENCOUNTER 2022-06-30 13:20 | Outpatient (CLI) | payer MEDICARE, OTHER ==
[~2022-06-30 13:20] MED LIST: Iopamidol 370 76% 100 ML VIAL ONE
== END 2022-06-30 13:21 | disposition home or self-care (01) ==
LOC: CT 13:20
PROVIDERS: ATTEND Internal Medicine Gastroenterology
DX: R10.32 Left lower quadrant pain (principal); K59.09 Other constipation; D12.6 Benign neoplasm of colon, unspecified; R63.4 Abnormal weight loss; N30.90 Cystitis, unspecified without hematuria; N32.89 Other specified disorders of bladder
CPT/HCPCS: 74177

== ENCOUNTER 2022-12-10 19:46 | Inpatient (IN) | payer MEDICARE, OTHER ==
[2022-12-10] MEDS ORDERED: Cefepime 2 GM VIAL ONE (20:11)
[2022-12-10] MEDS ORDERED: VANCOMYCIN 1.75 GM/500 ML BAG 1.75 GM in Premix Bag 1 BAG IVPB SCH (20:15)
[2022-12-10 20:17] LABS: #Basophils 0.1 thou/uL (0.0-0.2); #Eosinphils 0.2 thou/uL (0.0-0.7); #Monocytes 1.1 thou/uL (0.11-0.59); #Neutrophils 7.5 thou/uL (1.40-6.50); %Basophils 0.7 % (0.0-1.0); %Lymphocytes 14.7 % (21.0-51.0); %Monocytes 10.4 % (0.0-10.0); %Neutrophils 71.7 % (42.0-75.0); Hemoglobin 10.3 g/dL (12.0-16.0); Mean Corpuscular HGB CONC 30.3 g/dL (32.0-36.0); Mean Corpuscular Hemoglobin 23.3 pg (27.0-31.0); Mean Corpuscular Volume 76.9 fl (78.0-98.0); Mean Platelet Volume 11.1 fL (7.4-10.4); Platelet Count 215 10x3/uL (130-400); RBC Distribution Width 15.9 % (11.5-14.5); Red Blood Cell (RBC) Count 4.42 mill/uL (4.20-5.40); White Blood Cell (WBC) Count 10.5 10x3/uL (4.8-10.8)
[2022-12-10 20:36] LABS: Actual Bicarbonate (HCO3v) 22.6 mEq/L (22-28); Base Excess -1.3 mEq/L (-2.0 to +3.0); Calcium, Ionized (venous) 1.09 mmol/L (1.16-1.32); Chloride (VBG) 103 mmol/L (98-106); Hematocrit-VBG 34 % (36.0-47.0); Hemoglobin (Hb) 11.7 g/dL (11.7-16.1); Potassium (VBG) 3.89 mmol/L (3.70-5.30); Sodium 136 mmol/L (133-146); pH (venous) 7.427 (7.32-7.43)
[2022-12-10 20:39] LABS: ALT (SGPT) 7 U/L (8-55); AST (SGOT) 11 U/L (5-34); Alkaline Phosphatase 67 U/L (40-110); Anion Gap 15 mmol/L (10-20); BUN (Urea Nitrogen) 26 mg/dL (9.8-20.1); Bilirubin, Total 0.9 mg/dL (0.2-1.2); Calc. Creatinine Clearance 0 mL/min (70-130); Calcium 9.3 mg/dL (7.8-10.44); Carbon Dioxide 20 mmol/L (23-31); Chloride 105 mmol/L (98-107); Estimated GFR 65; Globulin 2.6 g/dL (2.4-3.5); Glucose 127 mg/dL (83-110); Lipase 10 U/L (8-78); Protein, Total 6.6 g/dL (5.8-8.1); Sodium 136 mmol/L (136-145)
[2022-12-10 20:43] LABS: Troponin I Less than 0.010 ng/mL (< 0.028)
[2022-12-10 21:32] LABS: Bacteria/HPF 4+ HPF (None Seen); Bilirubin Negative (Negative); Blood, Urine 3+ (Negative); CAUTI Indications for Culture Dysuria,urgency,freq; Clarity Extra Turbid (Clear); Glucose, Urine (Dipstick) Normal (Negative); Ketone, Urine Trace mg/dL (Negative); Leukocyte 500 Leu/uL (Negative); Nitrite 2+ (Negative); Protein, Urine (Dipstick) 300 mg/dL (Neg-Trace); RBC/HPF Greater than 50 HPF (0-3); Specific Gravity, Urine 1.024 (1.002-1.036); Squamous Epithelial None Seen HPF (0-3); Urine Culture Reflex Yes Yes; Urobilinogen Normal mg/dL (Less than 2); WBC/HPF Greater than 50 HPF (0-3)
[2022-12-10] MEDS ORDERED: Senokot S 8.6-50 MG TAB PO PRN (22:44)
[2022-12-10] MEDS ORDERED: Ondansetron ODT 4 MG TAB PO PRN (22:44)
[2022-12-10] MEDS ORDERED: Calcium Carbonate 500 MG ChewTAB PO PRN (22:44)
[2022-12-11] MEDS: Acetaminophen 325 MG TAB PO PRN ×3 (00:30→16:49)
[2022-12-11 00:41] VITALS: BMI 28.0
[2022-12-11] MEDS ORDERED: Meropenem 1 GM in Sodium Chloride 0.9% 100 ML IVPB SCH (06:00)
[2022-12-11 06:20] LABS: Anion Gap 13 mmol/L (10-20); BUN (Urea Nitrogen) 16 mg/dL (9.8-20.1); Calc. Creatinine Clearance 73 mL/min (70-130); Calcium 8.9 mg/dL (7.8-10.44); Carbon Dioxide 22 mmol/L (23-31); Chloride 108 mmol/L (98-107); Estimated GFR 81; Glucose 118 mg/dL (83-110); Potassium 3.6 mmol/L (3.5-5.1); Sodium 139 mmol/L (136-145)
[2022-12-11] MEDS: Furosemide 20 MG TAB PO SCH (08:31)
[2022-12-11] MEDS: Gabapentin 300 MG CAP PO SCH (08:31)
[2022-12-11] MEDS: Famotidine 20 MG TAB PO SCH ×2 (08:31→20:55)
[2022-12-11] MEDS: metFORMIN 500 MG TAB PO SCH (08:32)
[2022-12-11] MEDS: Escitalopram Oxalate 20 mg Tablet PO SCH (08:32)
[2022-12-11] MEDS: Levothyroxine Sodium 125 MCG TAB PO SCH (08:32)
[2022-12-11] MEDS: Amlodipine 5 MG TAB PO SCH (08:32)
[2022-12-11] MEDS: Aspirin 81 mg Enteric Coated Tablet PO SCH (08:33)
[2022-12-11] MEDS ORDERED: Dextrose 50% Abboject 50 ML SYRINGE SLOW IVP PRN (08:43)
[2022-12-11] MEDS ORDERED: Dextrose 5% in Water 1,000 ML IV PRN (08:43)
[2022-12-11] MEDS ORDERED: Glucagon 1 MG/ML KIT IM PRN (08:43)
[2022-12-11] MEDS ORDERED: HumaLOG 300 UNITS/3 ML VIAL SC PRN (08:43)
[2022-12-11] MEDS ORDERED: Cyanocobalamin 1000 MCG/ML VIAL IM SCH (09:00)
[2022-12-11] MEDS ORDERED: Nystatin Powder 15 GM BOT TOP PRN (12:18)
[2022-12-11] MEDS: Meropenem 1 GM in Sodium Chloride 0.9% 100 ML IVPB SCH ×2 (14:06→20:55)
[2022-12-11] MEDS: Melatonin 3 MG TAB PO PRN (20:55)
[2022-12-11] MEDS ORDERED: cefTRIAXone\\ROCEPHIN 1 GM in Sodium Chloride 0.9% 100 ML IVPB SCH (23:00)
[2022-12-12] MEDS: Acetaminophen 325 MG TAB PO PRN ×2 (02:53→20:41)
[2022-12-12] MEDS: Meropenem 1 GM in Sodium Chloride 0.9% 100 ML IVPB SCH ×3 (05:44→23:07)
[2022-12-12] MEDS: metFORMIN 500 MG TAB PO SCH ×2 (08:49→13:53)
[2022-12-12] MEDS: Amlodipine 5 MG TAB PO SCH ×2 (08:52→13:54)
[2022-12-12] MEDS: Aspirin 81 mg Enteric Coated Tablet PO SCH ×2 (08:52→13:53)
[2022-12-12] MEDS: Levothyroxine Sodium 125 MCG TAB PO SCH ×2 (08:52→13:54)
[2022-12-12] MEDS: Furosemide 20 MG TAB PO SCH ×2 (08:52→13:53)
[2022-12-12] MEDS: Famotidine 20 MG TAB PO SCH ×4 (08:52→20:41)
[2022-12-12] MEDS: Gabapentin 300 MG CAP PO SCH ×2 (08:52→13:53)
[2022-12-12] MEDS: Escitalopram Oxalate 20 mg Tablet PO SCH ×2 (08:52→13:54)
[2022-12-12] MEDS: Melatonin 3 MG TAB PO PRN (20:41)
[2022-12-13] MEDS: Meropenem 1 GM in Sodium Chloride 0.9% 100 ML IVPB SCH ×3 (05:32→21:31)
[2022-12-13 06:29] LABS: Hematocrit 34.5 % (36.0-47.0); Hemoglobin 10.5 g/dL (12.0-16.0); Mean Corpuscular HGB CONC 30.4 g/dL (32.0-36.0); Mean Corpuscular Hemoglobin 23.5 pg (27.0-31.0); Mean Corpuscular Volume 77.2 fl (78.0-98.0); Mean Platelet Volume 10.8 fL (7.4-10.4); Platelet Count 236 10x3/uL (130-400); Red Blood Cell (RBC) Count 4.47 mill/uL (4.20-5.40); White Blood Cell (WBC) Count 6.9 10x3/uL (4.8-10.8)
[2022-12-13 06:59] LABS: Anion Gap 12 mmol/L (10-20); BUN (Urea Nitrogen) 11 mg/dL (9.8-20.1); Calc. Creatinine Clearance 68 mL/min (70-130); Calcium 9.4 mg/dL (7.8-10.44); Carbon Dioxide 30 mmol/L (23-31); Chloride 103 mmol/L (98-107); Estimated GFR 75; Glucose 108 mg/dL (83-110); Potassium 3.5 mmol/L (3.5-5.1); Sodium 141 mmol/L (136-145)
[2022-12-13] MEDS: Acetaminophen 325 MG TAB PO PRN ×2 (07:37→20:29)
[2022-12-13] MEDS: Escitalopram Oxalate 20 mg Tablet PO SCH (09:07)
[2022-12-13] MEDS: Aspirin 81 mg Enteric Coated Tablet PO SCH (09:07)
[2022-12-13] MEDS: Gabapentin 300 MG CAP PO SCH (09:07)
[2022-12-13] MEDS: Levothyroxine Sodium 125 MCG TAB PO SCH (09:08)
[2022-12-13] MEDS: metFORMIN 500 MG TAB PO SCH (09:08)
[2022-12-13] MEDS: Furosemide 20 MG TAB PO SCH (09:08)
[2022-12-13] MEDS: Amlodipine 5 MG TAB PO SCH (09:08)
[2022-12-13] MEDS: Famotidine 20 MG TAB PO SCH ×2 (09:08→20:29)
[2022-12-13] MEDS: Melatonin 3 MG TAB PO PRN (21:32)
[2022-12-14 01:06] VITALS: TEMP 97.6
[2022-12-14] MEDS: Meropenem 1 GM in Sodium Chloride 0.9% 100 ML IVPB SCH (05:07)
[2022-12-14 08:30] VITALS: BP 129/78
[2022-12-14] MEDS: metFORMIN 500 MG TAB PO SCH (09:46)
[2022-12-14] MEDS: Gabapentin 300 MG CAP PO SCH (09:47)
[2022-12-14] MEDS: Levothyroxine Sodium 125 MCG TAB PO SCH (09:47)
[2022-12-14] MEDS: Furosemide 20 MG TAB PO SCH (09:47)
[2022-12-14] MEDS: Aspirin 81 mg Enteric Coated Tablet PO SCH (09:47)
[2022-12-14] MEDS: Famotidine 20 MG TAB PO SCH (09:47)
[2022-12-14] MEDS: Escitalopram Oxalate 20 mg Tablet PO SCH (09:47)
[2022-12-14] MEDS: Amlodipine 5 MG TAB PO SCH (09:47)
[2022-12-14] MEDS ORDERED: Ertapenem 1 GM in Sodium Chloride 0.9% 100 ML IVPB SCH (12:00)
== END 2022-12-14 14:44 | disposition home or self-care (01) | DRG 689 ==
LOC: ERS 19:46 → T4-A 22:37 → OBSVTOIN 12-11 13:27
PROVIDERS: ADMIT Student in an Organized Health Care Education/Training Program; ATTEND Internal Medicine
PROC: 4A043R1 Measurement of Venous Saturation, Peripheral, Percutaneous Approach (ICD-10-PCS; 2022-12-10)
PROC: 0T9B70Z Drainage of Bladder with Drainage Device, Via Natural or Artificial Opening (ICD-10-PCS; principal; 2022-12-11)
DX: N39.0 Urinary tract infection, site not specified (principal); G93.41 Metabolic encephalopathy; J96.00 Acute respiratory failure, unspecified whether with hypoxia or hypercapnia; F41.9 Anxiety disorder, unspecified; F32.A Depression, unspecified; E11.40 Type 2 diabetes mellitus with diabetic neuropathy, unspecified; Z88.2 Allergy status to sulfonamides; Z88.5 Allergy status to narcotic agent; Z79.84 Long term (current) use of oral hypoglycemic drugs; Z79.899 Other long term (current) drug therapy; Z79.82 Long term (current) use of aspirin; E78.5 Hyperlipidemia, unspecified; E03.9 Hypothyroidism, unspecified; Z90.710 Acquired absence of both cervix and uterus; Z98.890 Other specified postprocedural states; B96.20 Unspecified Escherichia coli [E. coli] as the cause of diseases classified elsewhere
CPT/HCPCS: 36415; 36416; 70450; 80048; 80053; 81001; 82805; 83605; 83690; 84484; 85025; 85027; 87040; 87077; 87086; 87186; J0692; J1335; J2185; J3370; J3490

== ENCOUNTER 2022-12-28 16:02 | Emergency (ER) | payer MEDICARE, OTHER ==
[2022-12-28 16:47] LABS: #Basophils 0.1 thou/uL (0.0-0.2); #Eosinphils 0.3 thou/uL (0.0-0.7); #Monocytes 0.6 thou/uL (0.11-0.59); #Neutrophils 3.7 thou/uL (1.40-6.50); %Basophils 1.3 % (0.0-1.0); %Eosinophils 3.7 % (0.0-10.0); %Lymphocytes 37.7 % (21.0-51.0); %Monocytes 8.4 % (0.0-10.0); %Neutrophils 48.8 % (42.0-75.0); Hematocrit 34.2 % (36.0-47.0); Hemoglobin 10.3 g/dL (12.0-16.0); Mean Corpuscular HGB CONC 30.1 g/dL (32.0-36.0); Mean Corpuscular Hemoglobin 23.4 pg (27.0-31.0); Mean Corpuscular Volume 77.7 fl (78.0-98.0); Mean Platelet Volume 10.7 fL (7.4-10.4); Platelet Count 250 10x3/uL (130-400); RBC Distribution Width 15.9 % (11.5-14.5); White Blood Cell (WBC) Count 7.5 10x3/uL (4.8-10.8)
[2022-12-28 17:11] LABS: Bilirubin Negative (Negative); Blood, Urine Negative (Negative); CAUTI Indications for Culture Dysuria,urgency,freq; Clarity Turbid (Clear); Glucose, Urine (Dipstick) Normal (Negative); Ketone, Urine Negative (Negative); Leukocyte 500 Leu/uL (Negative); Nitrite Negative (Negative); Protein, Urine (Dipstick) 20 mg/dL (Neg-Trace); RBC/HPF 0-3 HPF (0-3); Specific Gravity, Urine 1.014 (1.002-1.036); Urobilinogen Normal mg/dL (Less than 2); WBC/HPF 21-50 HPF (0-3)
[2022-12-28 17:21] LABS: Bacteria/HPF 2+ HPF (None Seen); Yeast-Budding Rare HPF (None Seen)
[2022-12-28 17:22] LABS: ALT (SGPT) 10 U/L (8-55); AST (SGOT) 16 U/L (5-34); Albumin 4.4 g/dL (3.4-4.8); Alkaline Phosphatase 69 U/L (40-110); Anion Gap 12 mmol/L (10-20); BUN (Urea Nitrogen) 16 mg/dL (9.8-20.1); Bilirubin, Total 0.7 mg/dL (0.2-1.2); Calc. Creatinine Clearance 0 mL/min (70-130); Calcium 9.3 mg/dL (7.8-10.44); Carbon Dioxide 25 mmol/L (23-31); Chloride 105 mmol/L (98-107); Estimated GFR 81; Globulin 2.6 g/dL (2.4-3.5); Glucose 79 mg/dL (83-110); Lipase 27 U/L (8-78); Potassium 4.1 mmol/L (3.5-5.1); Sodium 138 mmol/L (136-145); Urine Culture Reflex Yes Yes
[2022-12-28] MEDS ORDERED: Nitrofurantoin Monohyd/M-Cryst 100 MG CAP ONE (19:27)
== END 2022-12-28 19:30 | disposition home or self-care (01) ==
LOC: ERS 16:02
DX: N39.0 Urinary tract infection, site not specified (principal); I10 Essential (primary) hypertension; E11.40 Type 2 diabetes mellitus with diabetic neuropathy, unspecified
CPT/HCPCS: 36415; 74176; 80053; 81001; 83690; 85025; 87077; 87086; 87186